=== PATIENT | male | born 1945 | race Caucasian/White ===

== ENCOUNTER 2016-04-08 11:19 | Outpatient (CLI) | payer MEDICARE, OTHER | END 2016-04-08 11:20 | disposition home or self-care (01) | DX: E11.65 Type 2 diabetes mellitus with hyperglycemia (principal); E21.3 Hyperparathyroidism, unspecified ==

== ENCOUNTER 2016-05-24 07:31 | Outpatient (CLI) | payer MEDICARE, OTHER | END 2016-05-24 07:32 | disposition home or self-care (01) | DX: R97.20 Elevated prostate specific antigen [PSA] (principal) ==

== ENCOUNTER 2016-06-24 07:25 | Outpatient (CLI) | payer MEDICARE, OTHER | END 2016-06-24 07:26 | disposition home or self-care (01) | DX: E11.9 Type 2 diabetes mellitus without complications (principal); Z79.899 Other long term (current) drug therapy ==

== ENCOUNTER 2017-01-23 08:00 | Outpatient (CLI) | payer MEDICARE, OTHER ==
[2017-01-23 14:27] LABS: ALBUMIN/GLOBULIN RATIO 1.8 (1.0-2.2); BILIRUBIN,TOTAL 0.5 mg/dL (0.2-1.0); CREATININE 0.7 mg/dL (0.6-1.2); MAGNESIUM 2.2 mg/dL (1.7-2.8); POTASSIUM 4.5 mmol/L (3.5-5.0)
[2017-01-23 14:33] LABS: HEMOGLOBIN A1C 0.73 g/dL
== END 2017-01-23 08:01 | disposition home or self-care (01) ==
LOC: LAB.R 08:00
PROVIDERS: ATTEND Physician Assistant Medical
DX: Z79.899 Other long term (current) drug therapy (principal); E11.9 Type 2 diabetes mellitus without complications; E55.9 Vitamin D deficiency, unspecified; F32.9 Major depressive disorder, single episode, unspecified
CPT/HCPCS: 80053; 82306; 83036; 83735; 84443

== ENCOUNTER 2017-03-20 09:31 | Outpatient (CLI) | payer MEDICARE, OTHER ==
--- NOTE | 2017-03-20 14:50 | XRAY Report ---
DATE OF SERVICE: 03/20/2017 TWO-VIEW CHEST: 03/20/2017 CLINICAL INDICATION: Wheezing. COMPARISON: 05/18/2009 FINDINGS: Frontal and lateral views of the chest demonstrate a normal cardiac silhouette. The lungs are hyperinflated, but clear. No effusion or pneumothorax is present. IMPRESSION: HYPERINFLATION, BUT NO EVIDENCE OF ACUTE CARDIOPULMONARY DISEASE. TD: 03/20/2017 15:49
== END 2017-03-20 09:32 | disposition home or self-care (01) ==
LOC: DI 09:31
PROVIDERS: ATTEND Physician Assistant Medical
DX: R06.2 Wheezing (principal)
CPT/HCPCS: 71046

== ENCOUNTER 2017-03-23 07:05 | Outpatient (CLI) | payer MEDICARE, OTHER ==
--- NOTE | 2017-03-23 18:55 | CT Report ---
DATE OF SERVICE: 03/23/2017 CT SINUSES WITHOUT CONTRAST: 03/23/2017 CLINICAL INDICATION: Wheezing. COMPARISON: 09/30/[address] images of the paranasal sinuses were obtained without contrast, following which coronal and sagittal reconstructions were performed. In accordance with CT protocol optimization, one or more of the following dose reduction techniques were utilized for this exam: Automated exposure control, adjustment of mA and/or KV based on patient size, or use of iterative reconstructive technique. Postoperative changes are seen in the medial wall of the left maxillary sinus, with excision of the middle turbinate. There is mucosal thickening in the residual anterior ethmoid air cell on the left, mucosal thickening in the right ethmoid air cells, mucosal thickening in the right maxillary sinus, and mucosal thickening in the left frontal sinus. The right frontal sinus is hypoplastic. The sphenoid sinus is clear. The visualized intraorbital contents are unremarkable. IMPRESSION: Left-sided postoperative changes. Chronic sinusitis involving the right maxillary sinus, bilateral ethmoid air cells, and left frontal sinus. TD: 03/23/2017 19:54
== END 2017-03-23 07:06 | disposition home or self-care (01) ==
LOC: DI 07:05
PROVIDERS: ATTEND Physician Assistant Medical
DX: J32.8 Other chronic sinusitis (principal)
CPT/HCPCS: 70486

== ENCOUNTER 2017-05-31 06:51 | Outpatient (CLI) | payer MEDICARE, OTHER | END 2017-05-31 06:52 | disposition home or self-care (01) | LOC: LAB 06:51 | PROVIDERS: ATTEND Urology | DX: Z12.5 Encounter for screening for malignant neoplasm of prostate (principal) | CPT/HCPCS: 36415; G0103; 84153 ==

== ENCOUNTER 2018-02-06 07:04 | Outpatient (CLI) | payer MEDICARE, OTHER ==
--- NOTE | 2018-02-06 14:07 | CT Report ---
Reason: NEPHROLITHIASIS Procedure Date: 02/06/2018 Accession Number: [id number] / [id number] Procedure: CT - Abdomen/Pelvis W/O CPT Code: FULL RESULT: EXAM: CT ABDOMEN AND PELVIS (CT KUB) EXAM DATE: 02/06/2018 07:22 AM. CLINICAL HISTORY: NEPHROLITHIASIS. COMPARISONS: None. TECHNIQUE: Routine axial helical CT imaging was performed through the abdomen and pelvis without IV contrast. Reconstructions: Coronal and sagittal. In accordance with CT protocol optimization, one or more of the following dose reduction techniques were utilized for this exam: automated exposure control, adjustment of mA and/or KV based on patient size, or use of iterative reconstructive technique. FINDINGS: Lung Bases: Unremarkable. Right Kidney/Ureter: There are punctate calcifications measuring 1 mm or less. Some of these are potentially vascular in nature. No hydronephrosis, or hydroureter. Mild perinephric fat stranding. A subcentimeter hyperdense right renal cyst is incidentally noted, benign finding. Left Kidney/Ureter: Predominantly in the lower pole are multiple nonobstructing calculi, 2 of which measure 5 mm and 1 of which measures 3 mm No hydronephrosis, or hydroureter. Mild perinephric fat stranding. Other Solid Organs: Noncontrast images of the solid organs are grossly unremarkable. Gallbladder/Bile Ducts: Unremarkable. Peritoneal Cavity: No free fluid, free air or kenyon adenopathy. Bowel is grossly unremarkable with the exception of diverticulosis. Pelvic Organs: No bladder stones or wall thickening. Noncontrast images of the visualized pelvic organs are unremarkable. Vasculature: Atherosclerotic disease without kenyon infrarenal aortic aneurysm. Other: None. IMPRESSION: Bilateral small nonobstructing calculi as described. RADIA
== END 2018-02-06 07:05 | disposition home or self-care (01) ==
LOC: DI 07:04
PROVIDERS: ATTEND Physician Assistant Medical
DX: N20.0 Calculus of kidney (principal)
CPT/HCPCS: 74176

== ENCOUNTER 2018-02-10 06:15 | Outpatient (CLI) | payer MEDICARE, OTHER ==
[2018-02-10 06:36] LABS: BASOPHILS % (AUTO) 0.7 %; EOSINOPHILS # (AUTO) 0.1 10^3/uL (0.0-0.7); EOSINOPHILS % (AUTO) 2.7 %; HGB - HEMOGLOBIN 16.3 g/dL (14.0-18.0); LYMPHOCYTES # (AUTO) 1.4 10^3/uL (1.5-3.5); LYMPHOCYTES % (AUTO) 26.7 %; MEAN CORPUSCULAR HEMOGLOBIN 31.6 pg (27.0-31.0); MEAN CORPUSCULAR HGB CONC 33.9 g/dL (32.0-36.0); MEAN CORPUSCULAR VOLUME 93.2 fL (80.0-94.0); MONOCYTES # (AUTO) 0.5 10^3/uL (0.0-1.0); MONOCYTES % (AUTO) 9.5 %; NEUTROPHILS # (AUTO) 3.2 10^3/uL (1.5-6.6); NEUTROPHILS % (AUTO) 60.4 %; PLT - PLATELET COUNT 165 10^3/uL (130-450); RED BLOOD COUNT 5.17 10^6/uL (4.70-6.10); RED CELL DISTRIBUTION WIDTH 13.7 % (12.0-15.0); WHITE BLOOD COUNT 5.4 x10^3/uL (4.8-10.8)
[2018-02-10 06:51] LABS: ALBUMIN 4.2 g/dL (3.2-5.5); ALBUMIN/GLOBULIN RATIO 1.6 (1.0-2.2); BILIRUBIN,TOTAL 0.5 mg/dL (0.2-1.0); CALCIUM 8.6 mg/dL (8.5-10.3); CREATININE 0.8 mg/dL (0.6-1.2); TOTAL PROTEIN 6.8 g/dL (6.7-8.2)
[2018-02-10 07:11] LABS: THYROID STIMULATING HORMONE 1.84 uIU/mL (0.34-5.60)
== END 2018-02-10 06:16 | disposition home or self-care (01) ==
LOC: LAB 06:15
PROVIDERS: ATTEND Physician Assistant Medical
DX: Z79.899 Other long term (current) drug therapy (principal); E55.9 Vitamin D deficiency, unspecified; N20.0 Calculus of kidney
CPT/HCPCS: 36415; 80053; 82306; 83519; 83970; 84443; 85025

== ENCOUNTER 2018-03-13 06:33 | Outpatient (CLI) | payer MEDICARE, OTHER ==
[2018-03-13 07:05] LABS: CALCIUM 8.9 mg/dL (8.5-10.3); CREATININE 0.8 mg/dL (0.6-1.2); URIC ACID 6.8 mg/dL (2.6-7.2)
== END 2018-03-13 06:34 | disposition home or self-care (01) ==
LOC: LAB 06:33
PROVIDERS: ATTEND Urology
DX: N20.0 Calculus of kidney (principal)
CPT/HCPCS: 36415; 80048; 83970; 84550

== ENCOUNTER 2018-03-22 07:07 | Outpatient (CLI) | payer MEDICARE, OTHER ==
--- NOTE | 2018-03-23 10:33 | CT Report ---
Reason: SILVIA ABUSE Procedure Date: 03/22/2018 Accession Number: [id number] / [id number] Procedure: CT - Chest/Lung Screen Low Dose W/O CPT Code: FULL RESULT: EXAM CT LUNG SCREEN EXAM DATE: 03/22/2018 07:22 AM. HISTORY: 72-year-old patient with [id number] smoking history. Currently smoking: Yes. COMPARISON: None. TECHNIQUE: CT examination of the entire thorax without contrast was performed using low-dose technique. Thin section coronal, axial, sagittal and MIP axial images were obtained. In accordance with CT protocol optimization, one or more of the following dose reduction techniques were utilized for this exam: automated exposure control, adjustment of mA and/or KV based on patient size, or use of iterative reconstructive technique. FINDINGS: Nodules: Right upper lobe: None. Right middle lobe: None. Right lower lobe: None. Left upper lobe: 4 mm fissural nodularity image 40 series 4. 5 mm subpleural peripheral nodule image 64 series 4. Left lower lobe: None. Emphysema: None. Pleura: Unremarkable. Aorta: Mildly calcified. Mediastinum: Unremarkable. Coronary calcifications: Mild calcifications. Other pulmonary findings: None. Other extrapulmonary findings: None. IMPRESSION: Lung-RADS ASSESSMENT CATEGORY: 3 - probably benign. Probability of malignancy: 1-2% RECOMMENDATION: 6-month follow-up low-dose CT. RADIA
== END 2018-03-22 07:08 | disposition home or self-care (01) ==
LOC: DI 07:07
PROVIDERS: ATTEND Physician Assistant Medical
DX: Z12.2 Encounter for screening for malignant neoplasm of respiratory organs (principal); F17.210 Nicotine dependence, cigarettes, uncomplicated

== ENCOUNTER 2018-06-30 03:48 | Outpatient (CLI) | payer MEDICARE, OTHER ==
[2018-06-30 04:27] LABS: CALCIUM 8.7 mg/dL (8.5-10.3); CREATININE 0.7 mg/dL (0.6-1.2)
[2018-06-30 04:33] LABS: HB2 TOTAL 16.3 g/dL; HEMOGLOBIN A1C 0.65 g/dL; HEMOGLOBIN A1C % 5.8 % (4.6-6.2)
== END 2018-06-30 03:49 | disposition home or self-care (01) ==
LOC: LAB 03:48
PROVIDERS: ATTEND Family Medicine
DX: E11.9 Type 2 diabetes mellitus without complications (principal)
CPT/HCPCS: 36415; 80048; 83036